=== PATIENT | female | born 1975 ===

== ENCOUNTER 2021-03-08 13:18 | Emergency (ER) | payer OTHER ==
[~2021-03-08] VITALS: Ht 170.2 cm; Wt 61.7 kg
== END 2021-03-08 18:29 | disposition home or self-care (01) ==
LOC: ER 13:18
DX: K08.89 Other specified disorders of teeth and supporting structures (principal); B96.0 Mycoplasma pneumoniae [M. pneumoniae] as the cause of diseases classified elsewhere; R51.9 Headache, unspecified; R68.84 Jaw pain